=== PATIENT | female | born 1955 | race Two or more races ===

== ENCOUNTER → 2016-09-15 | Outpatient (CLI) | payer MEDICAID ==
--- NOTE | 2016-09-15 11:22 | DX ---
Left Knee, Five Views HISTORY: Left knee pain and swelling. FINDINGS: There is joint narrowing and subarticular sclerosis and periarticular spurring in the media l and patellofemoral compartment. There appears to be subcortical cystic change in the trochlear groo ve. Slight suprapatellar joint effusion. No evidence for acute fracture or dislocation. IMPRESSION: Mild early degenerative change in the medial and patellofemoral compartment. Slight supra patellar joint effusion.
== END ==
LOC: CIMAGING 10:04
PROVIDERS: ATTEND Family Medicine
DX: M25.462 Effusion, left knee (principal)
CPT/HCPCS: 73564-PO

== ENCOUNTER 2016-10-30 18:50 | Emergency (ER) | payer MEDICAID ==
[2016-10-30 19:14] VITALS: BP 150/97; PULSE 83; RESP 16; TEMP 98.2; O2SAT 98
[2016-10-30] MEDS ORDERED: IBUPROFEN 200 MG TAB PO ONE (19:33)
--- NOTE | 2016-10-30 20:25 | UCPHY ---
H & P Patient Type: Established Chief Complaint Nursing Narrative: cold symptoms for a few days, cough, hard to catch breath today, had blood tinged mucous today Time Seen by Provider: 10/30/16 20:15 HPI/ROS: This patient presents with a chief complaint cough productive of blood-tinged sputum which has been present for 2 days. The patient has been ill for 4 days with an illness that began with sore throat and is associated with runny nose, headache, myalgias, intermittent shortness of breath and a subjective fever. She has diffuse anterior chest pain as well. REVIEW OF SYSTEMS: Constitutional: Subjective fever, malaise and fatigue Eyes: No complaints ENT: Sore throat, rhinitis, no ear pain Respiratory: Cough, intermittent shortness of breath, blood tinged sputum Cardiac: Chest pain Gastrointestinal: Denies nausea vomiting constipation or diarrhea Genitourinary: Not addressed Musculoskeletal: Myalgias Skin: No rash Neurological: Headache Source: Patient, RN notes reviewed Exam Limitations: No limitations - Medical/Surgical History Hx Asthma: Yes Hx Chronic Respiratory Disease: No Hx Diabetes: No Hx Cardiac Disease: No Hx Renal Disease: No Hx Cirrhosis: No Hx Alcoholism: No Hx HIV/AIDS: No Hx Splenectomy or Spleen Trauma: No Other PMH: GERD and pleurisy. TYPE 2 DIABETES. SEVERE VARICOSE VEINS. HYPERTENSION. HYPERlipidemia and fibromyalgia - Family History Significant Family History: No pertinent family hx - Social History Smoking Status: Light smoker - Physical Exam Exam: GENERAL: Well-appearing, well-nourished and in no acute distress. No respiratory distress or tachypnea HEAD: Atraumatic, normocephalic. EYES: sclera anicteric, conjunctiva are normal. ENT: TMs normal, nares patent, oropharynx clear without exudates. Moist mucous membranes. NECK: Normal range of motion, supple without lymphadenopathy or JVD. Nontender LUNGS: Breath sounds clear to auscultation bilaterally and equal. No wheezes rales or rhonchi. No chest wall tenderness HEART: Regular rate and rhythm without murmurs, rubs or gallops. Peripheral pulses are symmetric and the lower extremities ABDOMEN: Soft, nontender, No guarding, no rebound. No masses appreciated. EXTREMITIES: Normal range of motion, no pitting or edema. No clubbing or cyanosis. Mild bilateral calf tenderness NEUROLOGICAL: Cranial nerves II through XII grossly intact. Normal speech, normal gait. PSYCH: Normal mood, normal affect. SKIN: Warm, dry, normal turgor, no visible rashes or lesions. Constitutional: Initial Vital Signs Temperature (C) 36.8 C 10/30/16 19:12 Heart Rate 83 10/30/16 19:12 Respiratory Rate 16 10/30/16 19:12 Blood Pressure 150/97 H 10/30/16 19:12 O2 Sat (%) 98 10/30/16 19:12 O2 Delivery Mode Room Air Allergies/Adverse Reactions: sulfamethoxazole [From Bactrim] Allergy (Intermediate, Verified 10/30/16 19:10) Other-Enter Comments trimethoprim [From Bactrim] Allergy (Intermediate, Verified 10/30/16 19:10) Other-Enter Comments metal Allergy (Uncoded 10/30/16 19:11) Home Medications: Medication Instructions Recorded Lovastatin 10/30/13 Albuterol Hfa Anes Only 05/29/15 Amlodipine Besylate 05/29/15 Premarin 08/18/16 Medical Decision Making - Diagnostics Imaging: A chest x-ray is normal Differential Diagnosis: I believe that this patient has a viral illness and that antibiotics are not indicated. There is no evidence of pneumonia or any other serious pulmonary problem. - Data Points Medications Given: Discontinued Medications Ibuprofen (Motrin) 600 mg PO EDNOW ONE Stop: 10/30/16 19:34 Last Admin: 10/30/16 19:45 Dose: 600 mg Departure - Departure Disposition: Home, Routine, Self-Care Clinical Impression: Acute bronchitis Qualifiers: Bronchitis organism: unspecified organism Qualified Code(s): J20.9 - Acute bronchitis, unspecified Condition: Good Instructions: Acute Bronchitis (ED) Additional Instructions: If your symptoms have not improved in 7-10 days you should be re-evaluated. If you feel that your symptoms are worsening you should be seen sooner. Adult Pain & Fever Control: We recommend Acetaminophen (Tylenol) and Ibuprofen (Motrin, Advil) for pain and fever control. When fever is high or pain severe, both drugs can be used at the same time, but at different intervals. Please note the time differences. Your dose is: Acetaminophen [650]mg every 4 to 6 hours ibuprofen [600]mg every [6] hours with food OR naproxen Sodium (Aleve) [440]mg every 12 hours. Note: do not take Acetaminophen with Hydrocodone (Vicodin, Lortab) or Oxycodone (Percocet). These medications also contain Acetaminophen. No more than 3000 mg of Acetaminophen should be taken in 24 hours (for an adult) . The maximal dose of ibuprofen that it is safe in a 24-hour period is 2400 mg. You may take 400 mg every 4 hours, 600 mg every 6 hours or 800 mg every 8 hours safely. Referrals: LASHAY YOUNG,. [Primary Care Provider] - As per Instructions - PQRS PQRS Measurement: Not applicable
== END 2016-10-30 21:00 | disposition home or self-care (01) ==
LOC: CED 18:50
DX: J02.9 Acute pharyngitis, unspecified (principal); K21.9 Gastro-esophageal reflux disease without esophagitis; I10 Essential (primary) hypertension; E11.9 Type 2 diabetes mellitus without complications; E78.5 Hyperlipidemia, unspecified; I83.90 Asymptomatic varicose veins of unspecified lower extremity; Z72.0 Tobacco use
CPT/HCPCS: 71020-PO; 99214-PO; G0463-PO

== ENCOUNTER 2016-12-02 22:28 | Emergency (ER) | payer MEDICAID ==
[2016-12-02 23:31] VITALS: BP 119/60; PULSE 66; RESP 16; TEMP 97.7; O2SAT 95
== END 2016-12-02 22:43 | disposition left against medical advice (07) ==
LOC: CED 22:28
DX: R10.9 Unspecified abdominal pain (principal); R50.9 Fever, unspecified; R03.0 Elevated blood-pressure reading, without diagnosis of hypertension; Z53.8 Procedure and treatment not carried out for other reasons

== ENCOUNTER 2016-12-03 16:00 | Emergency (ER) | payer MEDICAID ==
[2016-12-03 16:14] VITALS: BP 111/80; PULSE 81; RESP 18; TEMP 98.1; O2SAT 96
[2016-12-03 17:38] LABS: COLOR YELLOW; LEUKOCYTE ESTERASE,URINE NEGATIVE (NEGATIVE); NITRITE,URINE NEGATIVE (NEGATIVE)
[2016-12-03 18:27] LABS: % IMMATURE GRANULYOCYTES 0.1 % (0.0-1.1); ABSOLUTE IMMATURE GRANULOCYTES 0.01 10^3/uL (0.00-0.10); ADD DIFF? NO; ADD MORPH? NO; ADD SCAN? NO; ATYPICAL LYMPHOCYTE FLAG 0 (0-99); FRAGMENT RBC FLAG 0 (0-99); HEMATOCRIT 44.3 % (38.0-47.0); HEMOGLOBIN 14.2 g/dL (12.6-16.3); LEFT SHIFT FLG 0 (0-99); LIPEMIA HEMOLYSIS FLAG 80 (0-99); MEAN CELL HEMOGLOBIN 26.1 pg (27.9-34.1); MEAN CELL HEMOGLOBIN CONCENTR. 32.1 g/dL (32.4-36.7); MEAN CELL VOLUME 81.4 fL (81.5-99.8); MEAN PLATELET VOLUME 11.2 fL (8.7-11.7); PLATELET CLUMPS FLAG 0 (0-99); PLATELET COUNT 195 10^3/uL (150-400); RED BLOOD CELL COUNT 5.44 10^6/uL (4.18-5.33)
[2016-12-03 18:42] LABS: ALANINE AMINOTRANSFERASE 33 IU/L (9-52); ALKALINE PHOSPHATASE 83 IU/L (38-126); ANION GAP 15 mEq/L (8-16); ASPARTATE AMINOTRANSFERASE 24 IU/L (14-46); BILIRUBIN,TOTAL 0.4 mg/dL (0.1-1.4); CALCIUM 9.1 mg/dL (8.5-10.4); CARBON DIOXIDE 25 mEq/l (22-31); CHLORIDE 103 mEq/L (97-110); CREATININE 0.8 mg/dL (0.6-1.0); GLOMERULAR FILTRATION RATE > 60; GLUCOSE 92 mg/dL (70-100); POTASSIUM 4.1 mEq/L (3.5-5.2); SODIUM 143 mEq/L (134-144); TOTAL PROTEIN 7.2 g/dL (6.3-8.2)
--- NOTE | 2016-12-03 19:05 | UCPHY ---
H & P Patient Type: Established Chief Complaint Nursing Narrative: c/o bilateral upper abd and bilateral flank x 2 days. loose stools. no n/v Time Seen by Provider: 12/03/16 16:46 HPI/ROS: This patient reports generalized abdominal cramping slightly worse than left lower quadrant than elsewhere intermittently for the past 3 days. Peak intensity 5/10. At times she has no abdominal discomfort. She notes no clear exacerbating or alleviating factors. She thought she might have some constipation because of firm stool that she noted so she tried a stool softener with slightly looser stool for the past 24 hours but no change in the mild intermittent discomfort. She also describes cold symptoms consisting of coryza and a mild sore throat as well as mild frontal headache similar to previous headaches that resolved with [id number] antipyretics. ROS: No fevers or chills. No significant fatigue. No other constitutional symptoms. HEENT: No facial pain. She reports no ear pain. No visual changes. No photophobia. Pulmonary: Minimal cough that she attributes to postnasal drip. No pleuritic pain or shortness of breath. Cardiovascular: No lower extremity swelling or lightheadedness. No chest pain. GI: She still tolerating good p.o. intake. No nausea or vomiting. : No urinary symptoms. Neuro: No focal neuro complaints. 10 point ROS is otherwise negative. Source: Patient Exam Limitations: No limitations - Medical/Surgical History PMH: Hypercholesterolemia Hypertension Hx Asthma: Yes Hx Chronic Respiratory Disease: No Hx Diabetes: No Hx Cardiac Disease: No Hx Renal Disease: No Hx Cirrhosis: No Hx Alcoholism: No Hx HIV/AIDS: No Hx Splenectomy or Spleen Trauma: No Other PMH: htn, fibromyalgia. Past surgical history: Tubal ligation and hysterectomy - Family History Significant Family History: No pertinent family hx - Social History Smoking Status: Current some day smoker Alcohol Use: Occasionally Drug Use: None - Physical Exam Exam: Vital signs are normal General Appearance: Alert, no distress. Eyes: Pupils equal and round no pallor or injection. ENT, Mouth: Mucous membranes moist. No cranial tenderness or sinus tenderness to percussion. She has clear discharge from the nares bilaterally. Oropharynx is clear with no erythema or exudates. No dysphonia. Respiratory: There are no retractions, lungs are clear to auscultation. No rales, rhonchi or wheeze. Cardiovascular: Regular rate and rhythm. Gastrointestinal: Normoactive, soft, minimal left lower quadrant tenderness with no guarding or rebound. No distention. Back: No CVA tenderness Neurological: GCS 15 with no focal deficits appreciated. Skin: Warm and dry, no rashes. Musculoskeletal: Neck is supple nontender. Extremities are symmetrical, full range of motion. Psychiatric: Mood and affect are normal DIFFERENTIAL DIAGNOSIS: After history and physical exam differential diagnosis was considered for constipation with crampy pain, food intolerance, viral illness, URI, diverticulitis, UTI Constitutional: Initial Vital Signs Temperature (C) 36.7 C 12/03/16 16:11 Heart Rate 81 12/03/16 16:11 Respiratory Rate 18 12/03/16 16:11 Blood Pressure 111/80 12/03/16 16:11 O2 Sat (%) 96 12/03/16 16:11 O2 Delivery Mode Room Air Allergies/Adverse Reactions: sulfamethoxazole [From Bactrim] Allergy (Intermediate, Verified 10/30/16 19:10) Other-Enter Comments trimethoprim [From Bactrim] Allergy (Intermediate, Verified 10/30/16 19:10) Other-Enter Comments metal Allergy (Uncoded 10/30/16 19:11) Home Medications: Medication Instructions Recorded Lovastatin 10/30/13 Albuterol Hfa Anes Only 05/29/15 Amlodipine Besylate 05/29/15 Premarin 08/18/16 Docusate Sodium [Colace 100 MG (*)] 100 mg PO BID PRN #20 cap 12/03/16 Medical Decision Making ED Course/Re-evaluation: Studies: Normal, comp metabolic panel: Normal, urinalysis normal We counseled the patient regarding constipation. She has no concerning findings on workup. I do not think she has diverticulitis given minimal clinical findings and normal CBC. We ruled out UTI with normal urinalysis. - Data Points Laboratory Results: Laboratory Results 12/03/16 18:22 12/03/16 18:22 12/03/16 12/03/16 12/03/16 18:22 18:22 17:30 WBC 7.90 10^3/uL 10^3/uL (3.80-9.50) RBC 5.44 10^6/uL H 10^6/uL (4.18-5.33) Hgb 14.2 g/dL g/dL (12.6-16.3) Hct 44.3 % % (38.0-47.0) MCV 81.4 fL L fL (81.5-99.8) MCH 26.1 pg L pg (27.9-34.1) MCHC 32.1 g/dL L g/dL (32.4-36.7) RDW 15.0 % % (11.5-15.2) Plt Count 195 10^3/uL 10^3/uL (150-400) MPV 11.2 fL fL (8.7-11.7) Neut % (Auto) 51.6 % % (39.3-74.2) Lymph % (Auto) 36.8 % % (15.0-45.0) Nolan % (Auto) 9.0 % % (4.5-13.0) Eos % (Auto) 1.9 % % (0.6-7.6) Baso % (Auto) 0.6 % % (0.3-1.7) Nucleat RBC Rel Count 0.0 % % (0.0-0.2) Absolute Neuts (auto) 4.07 10^3/uL 10^3/uL (1.70-6.50) Absolute Lymphs (auto) 2.91 10^3/uL 10^3/uL (1.00-3.00) Absolute Monos (auto) 0.71 10^3/uL 10^3/uL (0.30-0.80) Absolute Eos (auto) 0.15 10^3/uL 10^3/uL (0.03-0.40) Absolute Basos (auto) 0.05 10^3/uL 10^3/uL (0.02-0.10) Absolute Nucleated RBC 0.00 10^3/uL 10^3/uL (0-0.01) Immature Gran % 0.1 % % (0.0-1.1) Immature Gran # 0.01 10^3/uL 10^3/uL (0.00-0.10) Sodium 143 mEq/L mEq/L (134-144) Potassium 4.1 mEq/L mEq/L (3.5-5.2) Chloride 103 mEq/L mEq/L (97-110) Carbon Dioxide 25 mEq/l mEq/l (22-31) Anion Gap 15 mEq/L mEq/L (8-16) BUN 15 mg/dL mg/dL (7-23) Creatinine 0.8 mg/dL mg/dL (0.6-1.0) Estimated GFR > 60 Glucose 92 mg/dL mg/dL (70-100) Calcium 9.1 mg/dL mg/dL (8.5-10.4) Total Bilirubin 0.4 mg/dL mg/dL (0.1-1.4) AST 24 IU/L IU/L (14-46) ALT 33 IU/L IU/L (9-52) Alkaline Phosphatase 83 IU/L IU/L (38-126) Total Protein 7.2 g/dL g/dL (6.3-8.2) Albumin 4.0 g/dL g/dL (3.5-5.0) Urine Color YELLOW Urine Appearance CLEAR Urine pH 6.0 (5.0-7.5) Ur Specific Wagoner 1.020 (1.002-1.030) Urine Protein NEGATIVE (NEGATIVE) Urine Ketones NEGATIVE (NEGATIVE) Urine Blood NEGATIVE (NEGATIVE) Urine Nitrate NEGATIVE (NEGATIVE) Urine Bilirubin NEGATIVE (NEGATIVE) Urine Urobilinogen 0.2 EU EU (0.2-1.0) Ur Leukocyte Esterase NEGATIVE (NEGATIVE) Ur Culture Indicated? NOT INDICATED (NI) Urine Glucose NEGATIVE (NEGATIVE) Departure - Departure Disposition: Home, Routine, Self-Care Clinical Impression: Generalized abdominal pain Constipation Qualifiers: Constipation type: unspecified constipation type Qualified Code(s): K59.00 - Constipation, unspecified Condition: Good Instructions: Constipation (ED) Additional Instructions: Diagnosis: 1. Constipation 2. Generalized crampy abdominal pain You do not have an elevated white blood cell count or other significant lab abnormalities today. Plan: Colace stool softener Drink plenty fluids Considered tbsp of all of oil a day in addition to the Colace stool softener. Tylenol or ibuprofen if needed for discomfort in her belly Follow up with primary care physician for any ongoing symptoms. Referrals: NONE *PRIMARY CARE P,. [Primary Care Provider] - As per Instructions Prescriptions: Docusate Sodium [Colace 100 MG (*)] 100 mg PO BID PRN #20 cap PRN Reason: Constipation - PQRS PQRS Measurement: NA
== END 2016-12-03 19:15 | disposition home or self-care (01) ==
LOC: CED 16:00
DX: R10.84 Generalized abdominal pain (principal); K59.00 Constipation, unspecified; E78.00 Pure hypercholesterolemia, unspecified; J45.909 Unspecified asthma, uncomplicated; I10 Essential (primary) hypertension; F17.200 Nicotine dependence, unspecified, uncomplicated; Z90.710 Acquired absence of both cervix and uterus; Z88.2 Allergy status to sulfonamides
CPT/HCPCS: 80053-PO; 81003-PO; 85025-PO; 99214-PO; G0463-PO

== ENCOUNTER 2016-12-29 21:06 | Emergency (ER) | payer MEDICAID ==
[2016-12-29 21:20] VITALS: BP 140/87; PULSE 86; RESP 16; TEMP 97.9; O2SAT 96
--- NOTE | 2016-12-29 22:41 | EDPHY ---
H & P Time Seen by Provider: 12/29/16 22:30 HPI/ROS: This patient reports spontaneous onset of a red eye-left side this afternoon. She had been outside and felt the wound blow an her face and was not sure if the episode is related to that at all. She did have any other associated symptoms except mild irritation after she noticed the redness. She also feels she might have a subtle vision change on that side. She has never had this eye redness before ROS: Constitutional: No complaints HEENT: No headache No recent eye trauma. No right eye symptoms at all. No discharge from left eye. Neuro: No complaints 5 point ROS is otherwise negative Past Medical/Surgical History: Fibromyalgia Hypertension Otherwise healthy Smoking Status: Current some day smoker Physical Exam: Physical Exam Vital signs are normal. General: No acute distress HEENT: Atraumatic. Eyes: Pupils equal and react to light. Extraocular motions are intact. Patient has a subconjunctival hemorrhage to medial left eye. Optic fundi exam is limited due to patient's IV movement but I appreciate no obvious retinal hemorrhage or abnormalities. Visual acuity is 20/20 right eye, 22 any OS and 20 /20 both eyes with correction lids and lashes are normal. No hyphema. Lungs: No respiratory distress. Cardiac: Brisk capillary refill is intact throughout. Skin: No rash or pallor. Neuro: GCS 15. No cranial nerve deficits are appreciated. Constitutional: Initial Vital Signs Temperature (C) 36.6 C 12/29/16 21:18 Heart Rate 86 12/29/16 21:18 Respiratory Rate 16 12/29/16 21:18 Blood Pressure 140/87 H 12/29/16 21:18 O2 Sat (%) 96 12/29/16 21:18 O2 Delivery Mode Room Air Allergies/Adverse Reactions: sulfamethoxazole [From Bactrim] Allergy (Intermediate, Verified 10/30/16 19:10) Other-Enter Comments trimethoprim [From Bactrim] Allergy (Intermediate, Verified 10/30/16 19:10) Other-Enter Comments metal Allergy (Uncoded 10/30/16 19:11) Home Medications: Medication Instructions Recorded Amlodipine Besylate 05/29/15 IBUPROFEN 12/29/16 MDM/Departure - MDM ED Course/Re-evaluation: Subconjunctival hemorrhage without any "red flag" findings. - Depart Disposition: Home, Routine, Self-Care Clinical Impression: Subconjunctival hemorrhage of left eye Condition: Good Instructions: Subconjunctival Hemorrhage (ED) Additional Instructions: Diagnosis: Subconjunctival hemorrhage Plan: Avoid aspirin The symptoms are gradually resolve typically over 10-14 days. Develops any new eye symptoms besides the current symptoms, follow up with the seeing eye dog teacher listed below Referrals: NONE *PRIMARY CARE P,. [Primary Care Provider] - As per Instructions Puja Cotto MD [Non Staff Provider (MD)] - As per Instructions
== END 2016-12-29 22:45 | disposition home or self-care (01) ==
LOC: CED 21:06
DX: H11.32 Conjunctival hemorrhage, left eye (principal); I10 Essential (primary) hypertension; F17.200 Nicotine dependence, unspecified, uncomplicated

== ENCOUNTER → 2018-07-02 | Outpatient (CLI) | payer MEDICAID | LOC: BRMIMAGING 12:54 | PROVIDERS: ATTEND Family Medicine | DX: Z12.31 Encounter for screening mammogram for malignant neoplasm of breast (principal) ==

== ENCOUNTER 2018-08-10 11:27 | Emergency (ER) | payer MEDICAID ==
[2018-08-10] MEDS ORDERED: ASPIRIN 81 MG CHEWABLE TAB PO ONE (11:56)
[2018-08-10] MEDS ORDERED: LORazepam 1 MG TAB PO ONE (11:56)
--- NOTE | 2018-08-10 12:02 | EDPHY ---
H & P Stated Complaint: TORRES started this past week,CP left ant then rt CP this am 1000, sob Time Seen by Provider: 08/10/18 11:37 HPI/ROS: CHIEF COMPLAINT: Headache, chest pain, anxiety HISTORY OF PRESENT ILLNESS: This is a 63-year-old female with a history of fibromyalgia as well as hypertension, questionable diabetes, and asthma who presents reporting that for the last week she has had intermittent episodes lasting about an hour of a sharp, shooting headache pain that extends from both temples across her cranium. Not associated with visual changes, nausea, vomiting, confusion, or neck pain. Not associated with fevers or chills. No history of exogenous estrogen use. No history of trauma. She has not had similar headaches in the past. She denies upper respiratory infection symptoms. Headaches have improved with Tylenol or naproxen. Currently she does not have a headache. This morning, she developed left and right anterior chest discomfort. Patient reports it feels like a pressure. Hurts to breathe and makes her feel short of breath. She does have anxiety which often causes right-sided chest discomfort but she became worried when her chest discomfort was on the left side today. Associated with a sensation of dizziness and an irregular heartbeat. She has had no fainting. No nausea or vomiting. Slight pleuritic component. No cold or cough symptoms, no runny nose. Patient states that the chest pain made her nervous today which has exacerbated her discomfort. She denies any fevers recently, sputum production, vomiting or diarrhea, urinary complaints. She has not been on diabetic medications, denies cardiac history but states that she is supposed to take an aspirin a day which she has not taken for the last 2 months, history of hypertension, no prior history of coronary artery disease. No history of PE or DVTs. REVIEW OF SYSTEMS: A comprehensive 10 system review of systems was reviewed and is otherwise negative aside from elements mentioned in the history of present illness and medical decision making. PAST MEDICAL HISTORY: Fibromyalgia, COPD/asthma, hypertension. SOCIAL HISTORY: Reports she quit smoking 3 weeks ago. VITAL SIGNS Reviewed by me. GENERAL: Well-developed, well-nourished, seems anxious. No obvious respiratory distress, respiratory rate is 24 on the monitor. HEENT: Atraumatic. Eyes: No icterus, no injection. Mouth: moist mucous membranes. No erythema or lesions. Neck: supple with no adenopathy. LUNGS: Clear to auscultation bilaterally, no wheezes, rhonchi or rales. CARDIAC: Regular rate and rhythm, no rubs, murmurs or gallops. CHEST WALL: Tenderness along the costosternal border bilaterally. ABDOMEN: Soft, nontender, nondistended, bowel sounds normal. BACK: No CVA tenderness. EXTREMITIES: No trauma. No edema. Range of motion is normal throughout. NEURO: Alert and oriented, grossly nonfocal. SKIN: Warm and dry, no rash. PSYCHIATRIC: Normal mentation, no agitation. - Personal History Current Tetanus Diphtheria and Acellular Pertussis (TDAP): Yes Tetanus Vaccine Date: 05/2018 - Medical/Surgical History Hx Asthma: Yes Hx Chronic Respiratory Disease: No Hx Diabetes: No Hx Cardiac Disease: No Hx Renal Disease: No Hx Cirrhosis: No Hx Alcoholism: No Hx HIV/AIDS: No Hx Splenectomy or Spleen Trauma: No Other PMH: htn, fibromyalgia. Past surgical history: Tubal ligation and hysterectomy - Social History Smoking Status: Former smoker Constitutional: Initial Vital Signs Temperature (C) 37.0 C 08/10/18 11:36 Heart Rate 58 L 08/10/18 11:36 Respiratory Rate 18 08/10/18 11:36 Blood Pressure 149/88 H 08/10/18 11:36 O2 Sat (%) 99 08/10/18 11:36 O2 Delivery Mode Room Air Allergies/Adverse Reactions: sulfamethoxazole [From Bactrim] Allergy (Intermediate, Verified 08/10/18 11:34) Other-Enter Comments trimethoprim [From Bactrim] Allergy (Intermediate, Verified 08/10/18 11:34) Other-Enter Comments metal Allergy (Uncoded 08/10/18 11:34) Home Medications: Medication Instructions Recorded Cat's Claw BID 08/10/18 LORazepam [Ativan] 1 mg PO Q6 PRN #6 tablet 08/10/18 Naproxen 08/10/18 Medical Decision Making - Diagnostics EKG Interpretation: 12-LEAD EKG: Please see the full report in Trace Master. My interpretation: Sinus rhythm Imaging Results: Xray: Chest x-ray was obtained. I viewed the images myself on the PACS system. My interpretation of the images is: Negative. The radiology interpretation is: Agrees. I discussed the results with the patient. Imaging: I viewed and interpreted images myself ED Course/Re-evaluation: 63-year-old female with history of hypertension, questionable history of diabetes, smoker who presents with bilateral anterior chest pain. Pain is described as sharp and has been present since 6 or 7:00 a.m. this morning. Patient feels that this is her anxiety causing her chest discomfort, however, the past she has not had chest pain on the left. EKG is nonischemic. Chest x-ray: Negative Troponin: Negative D-dimer: Negative Initial potassium on an i-STAT was 2.9, this was checked on the zeinab instrument and was 3.4. Patient also had reported a headache for several days, the which is described as a sharp shooting discomfort in the bitemporal regions. She is not on any blood thinners, no trauma. Patient received aspirin 324 mg as well as Ativan 1 mg. On re-examination at 12:40 she reports feeling improved. I believe her chest discomfort is nonischemic and that she is safe to be discharged. She has been taking naproxen with some improvement in her pain. I do not believe the patient needs advanced imaging studies such as an MRI or CT scan for her headache. We will provide 1 L of normal saline for additional hydration. Differential Diagnosis: After history was obtained, and the physical exam performed, a differential for headache was considered including, but not limited to, subarachnoid hemorrhage, migraine headache, tension headache and infectious causes such as meningitis, sinusitis, encephalitis. After history and physical examination, the differential for chest pain was considered, including but not limited to, myocardial ischemia, acute coronary syndrome, pulmonary embolus, chest wall pain, pleural inflammation and pulmonary infectious causes. - Data Points Medications Given: Discontinued Medications Aspirin (Aspirin) 324 mg PO EDNOW ONE Stop: 08/10/18 11:57 Last Admin: 08/10/18 12:03 Dose: 324 mg Sodium Chloride (Ns) 1,000 mls @ 0 mls/hr IV ONCE ONE; Wide Open PRN Reason: Protocol Stop: 08/10/18 12:55 Last Admin: 08/10/18 13:38 Dose: Not Given Lorazepam (Ativan) 1 mg PO EDNOW ONE Stop: 08/10/18 11:57 Last Admin: 08/10/18 12:03 Dose: 1 mg Point of Care Test Results: CBC CBC Collection Date 08/10/18 CBC Collection Time 11:47 WBC 9.2 RBC 5.72 HGB 15.6 HCT 46.3 PLT 208 Neut # 4.1 Neut 43.7 LYMPH # 4.4 LYMPH 48.3 Other WBC # 0.7 Other WBC 8.0 MCV 80.9 Chemistry 08/10/18 08/10/18 08/10/18 12:43 11:59 11:53 POC Sodium 139 mEq/L mEq/L 143 mEq/L mEq/L (135-145) (135-145) POC Potassium 3.3 mEq/L mEq/L 2.9 mEq/L L mEq/L (3.3-5.0) (3.3-5.0) POC Chloride 106 mEq/L mEq/L 102.0 mEq/L mEq/L (97-110) (97-110) POC Total CO2 23 mEq/L mEq/L (22-31) POC BUN 17 mg/dL mg/dL 15 mg/dL mg/dL (7-23) (7-23) POC Creatinine 0.7 mg/dL mg/dL 1.0 mg/dL mg/dL (0.6-1.0) (0.6-1.0) POC Glucose 88 mg/dL mg/dL 91 mg/dL mg/dL (70-100) (70-100) POC Calcium 10.1 mg/dL mg/dL (8.5-10.4) POC Troponin I 0.00 ng/mL ng/mL (0.00-0.08) ISTAT H&H 08/10/18 12:43 POC Hgb 14.6 gm/dL gm/dL (12.6-16.3) POC Hct 43 % % (38-47) D-Dimer D-Dimer Collection Date 08/10/18 D-Dimer Collection Time 11:47 D-Dimer (ng/ml) 181 Departure - Departure Disposition: Home, Routine, Self-Care Clinical Impression: Chest pain Qualifiers: Chest pain type: unspecified Qualified Code(s): R07.9 - Chest pain, unspecified Headache Qualifiers: Headache type: unspecified Headache chronicity pattern: acute headache Intractability: not intractable Qualified Code(s): R51 - Headache Condition: Good Instructions: Chest Pain (ED), Costochondritis (ED), Acute Headache (ED), Thoracic Pain (ED) Additional Instructions: I do not see any evidence that your chest pain is related to your heart. However, you do have risk factors for coronary artery disease and I would suggest that you follow up with your primary care physician. Please return to the emergency department if the chest pain worsens, is associated with nausea and vomiting, gets worse with exertion, if you have fainting related to the chest pain or if you break out in a sweat with the chest pain. You been given a short prescription of Ativan to use as needed for anxiety. Please take 1/2 to 1 tablet 1 to 2 times a day if needed. I also recommend regular doses of naproxen or ibuprofen to help with your chest discomfort. I recommend Ibuprofen (Motrin, Advil) or Naproxen Sodium (Aleve) for pain and anti-inflammatory effects. You may take either one, but do not take both. Your dose is: Ibuprofen 600 mg every 6-8 hours with food. OR Naproxen Sodium (Aleve) 220 mg every 12 hours. Drink plenty of fluids and get plenty of rest to help treat her headache discomfort. Please return to the emergency department or seek care urgently if your headache is worsening despite the above treatments. You may also take Tylenol, 650 mg to 1000 mg 3-4 times a day for additional headache relief. Referrals: Suzan Osman DO [Primary Care Provider] - As per Instructions Prescriptions: LORazepam [Ativan] 1 mg PO Q6 PRN #6 tablet PRN Reason: Anxiety
[2018-08-10] MEDS ORDERED: NS 1,000 ML IV ONE (12:54)
[2018-08-10 14:04] VITALS: BP 127/80
--- NOTE | 2018-08-11 23:39 | CPEKG ---
Test Reason : OPEN Blood Pressure : / mmHG Vent. Rate : 060 BPM Atrial Rate : 060 BPM P-R Int : 142 ms QRS Dur : 105 ms QT Int : 441 ms P-R-T Axes : 023 009 054 degrees QTc Int : 441 ms Sinus rhythm Confirmed by Ema Gilbert ([id number]) on 08/11/2018 11:39:17 PM Referred By: Confirmed By:Ema Gilbert
== END 2018-08-10 14:00 | disposition home or self-care (01) ==
LOC: CED 11:27
DX: R07.9 Chest pain, unspecified (principal); R51 Headache; I10 Essential (primary) hypertension; J44.9 Chronic obstructive pulmonary disease, unspecified
CPT/HCPCS: 71046-PO; 80048-PO; 82435-PO; 82565-PO; 82947-PO; 84132-PO; 84295-PO; 84484-PO; 84520-PO; 85014-PO

== ENCOUNTER 2018-08-14 14:47 | Emergency (ER) | payer MEDICAID ==
[2018-08-14] MEDS ORDERED: LIDOCAINE 2% VISCOUS 15 ML UDCUP PO ONE (15:04)
[2018-08-14] MEDS ORDERED: MAG HYDROX/AL HYDROX/SIMETH 30 ML UDCUP PO ONE (15:04)
[2018-08-14] MEDS ORDERED: HYOSCYAMINE SULFATE 0.125 MG TAB PO ONE (15:04)
[2018-08-14] MEDS ORDERED: NS 1,000 ML IV ONE (15:04)
--- NOTE | 2018-08-14 15:08 | EDPHY ---
H & P Stated Complaint: Abdominal pain Time Seen by Provider: 08/14/18 14:57 HPI/ROS: CHIEF COMPLAINT: Abdominal pain in the radiates to her back HISTORY OF PRESENT ILLNESS: Patient is a 63-year-old female with a history of fibromyalgia and hypertension who comes to the emergency department complaining of left upper quadrant pain that radiated to her left shoulder blade . She states that it began last night but that her granddaughter gave her massage in it seemed to resolve. This morning it returned and is been present for the last 8 hr. She is soon that it was her gastritis and took an Mary Carmen-Nubieber with moderate improvement. She denies shortness of breath but does have some pain with deep inspiration. She denies cardiac history and had a negative stress test 2 years ago. No fevers. No vomiting. No diarrhea or constipation. No blood in her stool. She states that she takes p.r.n. Tums and Mary Carmen-Nubieber for gastritis type symptoms. She was seen here 4 days ago for chest pain and headache. She had a negative cardiac workup in her headache is resolved. She has been taking Advil several times per day as was recommended. Severity: Moderate Modifying factors: None REVIEW OF SYSTEMS: Constitutional: denies: chills, fever, recent illness, recent injury EENTM: denies: blurred vision, double vision, nose congestion Respiratory: denies: cough, shortness of breath Cardiac: denies: chest pain, irregular heart rate, lightheadedness, palpitations Gastrointestinal/Abdominal: See HPI Genitourinary: denies: dysuria, frequency, hematuria, pain Musculoskeletal: denies: joint pain, muscle pain Skin: denies: lesions, rash, jaundice, bruising Neurological: denies: headache, numbness, paresthesia, tingling, dizziness, weakness Hematologic/Lymphatic: denies: blood clots, easy bleeding, easy bruising Immunologic/allergic: denies: HIV/AIDS, transplant 10 systems reviewed and negative except as noted EXAM: GENERAL: Well-appearing, well-nourished and in no acute distress. HEAD: Atraumatic, normocephalic. EYES: Pupils equal round and reactive to light, extraocular movements intact, sclera anicteric, conjunctiva are normal. ENT: TMs normal, nares patent, oropharynx clear without exudates. Moist mucous membranes. NECK: Normal range of motion, supple without lymphadenopathy or JVD. LUNGS: Breath sounds clear to auscultation bilaterally and equal. No wheezes rales or rhonchi. HEART: Regular rate and rhythm without murmurs, rubs or gallops. ABDOMEN: Soft, nontender, normoactive bowel sounds. No guarding, no rebound. No masses appreciated. Negative Bolivar's BACK: No CVA tenderness, no spinal tenderness, step-offs or deformities EXTREMITIES: Normal range of motion, no pitting or edema. No clubbing or cyanosis. NEUROLOGICAL: Cranial nerves II through XII grossly intact. Normal speech, normal gait. 5/5 strength, normal movement in all extremities, normal sensation , normal reflexes PSYCH: Normal mood, normal affect. SKIN: Warm, dry, normal turgor, no visible rashes or lesions. Source: Patient Exam Limitations: No limitations - Personal History Current Tetanus Diphtheria and Acellular Pertussis (TDAP): Yes Tetanus Vaccine Date: 05/2018 - Medical/Surgical History Hx Asthma: Yes Hx Chronic Respiratory Disease: No Hx Diabetes: No Hx Cardiac Disease: No Hx Renal Disease: No Hx Cirrhosis: No Hx Alcoholism: No Hx HIV/AIDS: No Hx Splenectomy or Spleen Trauma: No Other PMH: htn, fibromyalgia. Past surgical history: Tubal ligation and hysterectomy - Family History Significant Family History: No pertinent family hx - Social History Smoking Status: Former smoker Alcohol Use: Sober Drug Use: None Constitutional: Initial Vital Signs Temperature (C) 36.9 C 08/14/18 14:54 Heart Rate 85 08/14/18 14:54 Respiratory Rate 20 08/14/18 14:54 Blood Pressure 186/115 H 08/14/18 14:54 O2 Sat (%) 95 08/14/18 14:54 O2 Delivery Mode Room Air Allergies/Adverse Reactions: sulfamethoxazole [From Bactrim] Allergy (Intermediate, Verified 08/14/18 15:00) Other-Enter Comments trimethoprim [From Bactrim] Allergy (Intermediate, Verified 08/14/18 15:00) Other-Enter Comments metal Allergy (Uncoded 08/14/18 15:00) Home Medications: Medication Instructions Recorded Cat's Claw BID 08/10/18 LORazepam [Ativan] 1 mg PO Q6 PRN #6 tablet 08/10/18 Naproxen 08/10/18 Famotidine [Pepcid] 40 mg PO HS #30 tablet 08/14/18 Zolpidem Tartrate [Ambien 5MG (*)] 5 mg PO HS #10 tab 08/14/18 Medical Decision Making - Diagnostics EKG Interpretation: An EKG obtained and was read and documented in trace view. Please see trace view for full reading and report. Sinus rhythm, no acute ischemic changes, unchanged from previous A repeat EKG obtained and was read and documented in trace view. Please see trace view for full reading and report. Sinus rhythm, no acute ischemic changes Imaging Results: Imaging Impressions Chest X-Ray 08/14/18 15:04 Impression: Stable and negative. Recommendation: Consider CT of the abdomen, as clinically directed. Imaging: Discussed imaging studies w/ machine scallop cutter Radiologist ED Course/Re-evaluation: Patient has a history of gastritis and has been taking Advil for the last 4 days since her previous visit. I suspect that this is the most likely cause of her left upper quadrant pain. No blood in her stool or vomit. No peritoneal signs. Will repeat cardiac and pulmonary testing. Will treat with GI cocktail. 4:10 p.m. repeat EKG is unremarkable. The patient states that she is having is anxiety. I will treat with Ativan. I will also treat with Pepcid. She states that the GI cocktail did help with her symptoms. We discussed rectal exam to assess for occult blood but she declines. 5:10 p.m. the patient feels much better. She is eager to go home. We discussed antacids. She is also requesting a sleep aid. We discussed indications for returning such as vomiting blood or blood in her stool or worsening chest pain or shortness of breath etc. Differential Diagnosis: Partial list of the Differential diagnosis considered include but were not limited to; gastritis, peptic ulcer disease, anxiety, pleurisy, costochondritis and although unlikely based on the history and physical exam, I also considered acute coronary disease, PE, dissection, pneumonia. I discussed these differential diagnoses and the plan with the patient as well as the usual and expected course. The patient understands that the diagnosis is provisional and that in medicine we are not always correct and that further workup is often warranted. Usual and customary warnings were given. All of the patient's questions were answered. The patient was instructed to return to the emergency department should the symptoms at all worsen or return, otherwise to followup with the physician as we discussed. - Data Points Laboratory Results: 08/14/18 08/14/18 15:30 15:26 POC Sodium 142 mEq/L mEq/L (135-145) POC Potassium 3.3 mEq/L mEq/L (3.3-5.0) POC Chloride 99.0 mEq/L mEq/L (97-110) POC Total CO2 23 mEq/L mEq/L (22-31) POC BUN 9 mg/dL mg/dL (7-23) POC Creatinine 0.7 mg/dL mg/dL (0.6-1.0) POC Glucose 106 mg/dL H mg/dL (70-100) POC Calcium 10.0 mg/dL mg/dL (8.5-10.4) POC Total Bilirubin 0.6 mg/dL mg/dL (0.1-1.4) POC AST 30 IU/L IU/L (14-46) POC ALT 26 IU/L IU/L (9-52) POC Alk Phosphatase 84 IU/L IU/L (38-126) POC Troponin I 0.00 ng/mL ng/mL (0.00-0.08) POC Total Protein 7.1 g/dL g/dL (6.3-8.2) POC Albumin 3.8 g/dL g/dL (3.5-5.0) Medications Given: Discontinued Medications Al Hydroxide/Mg Hydroxide (Maalox Susp) 30 ml PO ONCE ONE Stop: 08/14/18 15:05 Last Admin: 08/14/18 15:14 Dose: 30 ml Famotidine (Pepcid) 40 mg PO EDNOW ONE Stop: 08/14/18 16:10 Last Admin: 08/14/18 16:23 Dose: 40 mg Hyoscyamine Sulfate (Levsin, Hyomax-Sl) 0.25 mg PO ONCE ONE Stop: 08/14/18 15:05 Last Admin: 08/14/18 15:14 Dose: 0.25 mg Sodium Chloride (Ns) 1,000 mls @ 0 mls/hr IV EDNOW ONE; Wide Open PRN Reason: Protocol Stop: 08/14/18 15:05 Last Admin: 08/14/18 15:35 Dose: 1,000 mls Lidocaine (Lidocaine 2% Viscous) 15 ml PO ONCE ONE Stop: 08/14/18 15:05 Last Admin: 08/14/18 15:14 Dose: 15 ml Lorazepam (Ativan Injection) 1 mg IVP EDNOW ONE Stop: 08/14/18 16:10 Last Admin: 08/14/18 16:16 Dose: 1 mg Point of Care Test Results: CBC CBC Collection Date 08/14/18 CBC Collection Time 15:23 WBC 7.4 RBC 5.57 HGB 15.2 HCT 44.8 PLT 194 Neut # 3.7 Neut 49.9 LYMPH # 3.0 LYMPH 41.0 Other WBC # 0.7 Other WBC 9.1 MCV 80.4 Chemistry 08/14/18 08/14/18 15:30 15:26 POC Sodium 142 mEq/L mEq/L (135-145) POC Potassium 3.3 mEq/L mEq/L (3.3-5.0) POC Chloride 99.0 mEq/L mEq/L (97-110) POC Total CO2 23 mEq/L mEq/L (22-31) POC BUN 9 mg/dL mg/dL (7-23) POC Creatinine 0.7 mg/dL mg/dL (0.6-1.0) POC Glucose 106 mg/dL H mg/dL (70-100) POC Calcium 10.0 mg/dL mg/dL (8.5-10.4) POC Total Bilirubin 0.6 mg/dL mg/dL (0.1-1.4) POC AST 30 IU/L IU/L (14-46) POC ALT 26 IU/L IU/L (9-52) POC Alk Phosphatase 84 IU/L IU/L (38-126) POC Troponin I 0.00 ng/mL ng/mL (0.00-0.08) POC Total Protein 7.1 g/dL g/dL (6.3-8.2) POC Albumin 3.8 g/dL g/dL (3.5-5.0) D-Dimer D-Dimer Collection Date 08/14/18 D-Dimer Collection Time 15:23 D-Dimer (ng/ml) 131 Departure - Departure Disposition: Home, Routine, Self-Care Clinical Impression: Epigastric abdominal pain, Peptic ulcer disease Condition: Fair Instructions: Gastritis (ED), Epigastric Pain (ED) Referrals: Suzan Osman, [Primary Care Provider] - 2-3 days, if not improved Prescriptions: Famotidine [Pepcid] 40 mg PO HS #30 tablet Zolpidem Tartrate [Ambien 5MG (*)] 5 mg PO HS #10 tab
--- NOTE | 2018-08-14 15:25 | CPEKG ---
Test Reason : OPEN Blood Pressure : / mmHG Vent. Rate : 063 BPM Atrial Rate : 063 BPM P-R Int : 144 ms QRS Dur : 095 ms QT Int : 427 ms P-R-T Axes : 050 -16 052 degrees QTc Int : 438 ms Sinus rhythm Borderline left axis deviation Confirmed by Chivo Plaza ([id number]) on 08/14/2018 3:25:17 PM Referred By: Confirmed By:Chivo Plaza
[2018-08-14] MEDS ORDERED: FAMOTIDINE 20 MG TAB PO ONE (16:09)
[2018-08-14] MEDS ORDERED: LORazepam 2 MG/ML INJ IVP ONE (16:09)
--- NOTE | 2018-08-14 16:14 | CPEKG ---
Test Reason : OPEN Blood Pressure : / mmHG Vent. Rate : 057 BPM Atrial Rate : 057 BPM P-R Int : 153 ms QRS Dur : 114 ms QT Int : 461 ms P-R-T Axes : 042 -08 063 degrees QTc Int : 449 ms Sinus rhythm Low voltage, extremity leads Confirmed by Chivo Plaza ([id number]) on 08/14/2018 4:14:28 PM Referred By: Confirmed By:Chivo Plaza
[2018-08-14 17:25] VITALS: BP 133/83
== END 2018-08-14 17:24 | disposition home or self-care (01) ==
LOC: CED 14:47
DX: R10.13 Epigastric pain (principal); K27.9 Peptic ulcer, site unspecified, unspecified as acute or chronic, without hemorrhage or perforation; E86.9 Volume depletion, unspecified; M79.7 Fibromyalgia; Z87.891 Personal history of nicotine dependence; Z88.2 Allergy status to sulfonamides
CPT/HCPCS: 71046-PO; 80053-PO; 84484-ER; 96374; J2060

== ENCOUNTER 2018-08-25 14:05 | Emergency (ER) | payer MEDICAID ==
[2018-08-25] MEDS ORDERED: MAG HYDROX/AL HYDROX/SIMETH 30 ML UDCUP PO ONE (15:32)
[2018-08-25] MEDS ORDERED: HYOSCYAMINE SULFATE 0.125 MG TAB PO ONE (15:32)
[2018-08-25] MEDS ORDERED: LIDOCAINE 2% VISCOUS 15 ML UDCUP PO ONE (15:32)
--- NOTE | 2018-08-25 15:37 | EDPHY ---
H & P Stated Complaint: L SIDED FLANK PAIN SINCE LAST NIGHT FOLLOWING EATING Time Seen by Provider: 08/25/18 15:12 HPI/ROS: CHIEF COMPLAINT: Left upper abdominal pain HISTORY OF PRESENT ILLNESS: This is a 63-year-old female requesting a refill on her Pepcid. She was seen here on August 10 and August 14 and diagnosed with GERD. On the she was started on Pepcid 40 mg HS. She felt that this medication was helping her but she left her prescription Pepcid in [place] and found that the [id number] Pepcid did not seem to be as effective. She has not taken any Pepcid for the last few days. After her visit on the she was also seen at [facility] where she was diagnosed with shingles--the rashes on the left side just below her breast on both thorax and her back. She has been taking Tylenol for discomfort related to the rash. In addition to being seen at [facility] she was also seen by her primary care physician last week. There has been no significant change in her condition today; except that she inadvertently ate some spicy food last night and today has had sharp midepigastric discomfort which she feels is related to GERD. She requests prescription Pepcid. She denies any fever, nausea or vomiting, diarrhea, blood in her stool, or change in the quality of pain that she has been experiencing. REVIEW OF SYSTEMS: A ten system review of systems was performed and is negative with the exception of the items mentioned in the HPI. Recently found to have a mass in her neck. Ultrasound performed last week and she will see her doctor this week to hear the results. No difficulty swallowing. Past medical history: 1. Hypertension 2. Fibromyalgia Social history: She is here with her daughter but lives in [place]. She is disabled. She does not use tobacco products. She rarely drinks alcohol. General Appearance: Alert. Vital signs reviewed. Blood pressure 144/89. Eyes: Pupils equal and round, no conjunctival injection, no discharge. Anicteric. ENT, Mouth: Mucous membranes are moist, no oropharyngeal erythema or edema. Neck: No lymphadenopathy, supple. Respiratory: Lungs are clear to auscultation; no wheezes, rales, or rhonchi. Thorax: Scabbed rash left back and thorax under her breast in a dermatomal distribution. Cardiovascular: Regular rate and rhythm; no murmur, rub, or gallop. Gastrointestinal: Abdomen is soft and nontender, no masses or organomegaly, bowel sounds normal. Skin: Warm and dry, rash as above, normal color. Back: Nontender to palpation over the thoracolumbar spine. No CVAT. Neurological: Alert and oriented. Moving all four extremities easily and equally. Psychiatric: Normal affect. - Personal History Current Tetanus Diphtheria and Acellular Pertussis (TDAP): Yes Tetanus Vaccine Date: 05/2018 - Medical/Surgical History Hx Asthma: Yes Hx Chronic Respiratory Disease: No Hx Diabetes: No Hx Cardiac Disease: No Hx Renal Disease: No Hx Cirrhosis: No Hx Alcoholism: No Hx HIV/AIDS: No Hx Splenectomy or Spleen Trauma: No Other PMH: htn, fibromyalgia. Past surgical history: Tubal ligation and hysterectomy - Social History Smoking Status: Former smoker Constitutional: Initial Vital Signs Temperature (C) 36.5 C 08/25/18 14:09 Heart Rate 76 08/25/18 14:09 Respiratory Rate 16 08/25/18 14:09 Blood Pressure 144/89 H 08/25/18 14:09 O2 Sat (%) 94 08/25/18 14:09 O2 Delivery Mode Room Air Allergies/Adverse Reactions: sulfamethoxazole [From Bactrim] Allergy (Intermediate, Verified 08/25/18 14:18) Other-Enter Comments trimethoprim [From Bactrim] Allergy (Intermediate, Verified 08/25/18 14:18) Other-Enter Comments metal Allergy (Uncoded 08/25/18 14:18) Home Medications: Medication Instructions Recorded Cat's Claw BID 08/10/18 LORazepam [Ativan] 1 mg PO Q6 PRN #6 tablet 08/10/18 Naproxen 08/10/18 Famotidine [Pepcid] 40 mg PO HS #30 tablet 08/14/18 Zolpidem Tartrate [Ambien 5MG (*)] 5 mg PO HS #10 tab 08/14/18 Famotidine [Pepcid] 40 mg PO HS #20 tablet 08/25/18 Medical Decision Making - Diagnostics EKG Interpretation: 12 lead EKG is interpreted in [place] by emergency department physician. ED Course/Re-evaluation: She felt that her symptoms were helped by the Pepcid and I see no reason not to continue this medication at this time. However, I suspect that much of her discomfort is related to her shingles, which are left-sided. She has been seen four times by various medical providers in the last ten days and I do not think that she needs additional ED evaluation today. She has follow-up with her primary care physician in 3 days. I have written a prescription for Pepcid 40 mg at bedtime. She plans to watch her diet more carefully. She was given a GI cocktail here in the emergency department. She will continue with Tylenol for pain over shingles. Danger signs were reviewed with her. Differential Diagnosis: I considered a ddx that includes but is not limited to GERD, PUD, shingles, hiatal hernia, pain related to shingles, ACS. I do not suspect a cardiac etiology of her discomfort and she had a cardiac evaluation recently. Departure - Departure Disposition: Home, Routine, Self-Care Clinical Impression: GERD (gastroesophageal reflux disease) Qualifiers: Esophagitis presence: esophagitis presence not specified Qualified Code(s): K21.9 - Gastro-esophageal reflux disease without esophagitis Shingles Qualifiers: Herpes zoster complications: without complications Qualified Code(s): B02.9 - Zoster without complications Condition: Fair Instructions: Shingles (ED), Diet for Stomach Ulcers and Gastritis (ED), Gastroesophageal Reflux Disease (ED) Additional Instructions: Take Tylenol, 650 mg, every four hours for the pain of your shingles. Do not take more than 3000 mg of tylenol in a twenty four hour time period. Take the pepcid once daily. Buy some Maalox or Mylanta to use if you have heartburn. Follow up on Sunday with your doctor, as planned. Referrals: Suzan Osman DO [Primary Care Provider] - As per Instructions Prescriptions: Famotidine [Pepcid] 40 mg PO HS #20 tablet
[2018-08-25 15:51] VITALS: BP 135/80
--- NOTE | 2018-08-25 15:56 | CPEKG ---
Test Reason : OPEN Blood Pressure : / mmHG Vent. Rate : 066 BPM Atrial Rate : 067 BPM P-R Int : 135 ms QRS Dur : 094 ms QT Int : 410 ms P-R-T Axes : 055 -10 039 degrees QTc Int : 430 ms Sinus rhythm Confirmed by Willow Sandy ([id number]) on 08/25/2018 3:56:34 PM Referred By: Confirmed By:Willow Sandy
== END 2018-08-25 15:50 | disposition home or self-care (01) ==
LOC: CED 14:05
DX: K21.9 Gastro-esophageal reflux disease without esophagitis (principal); B02.9 Zoster without complications; I10 Essential (primary) hypertension

== ENCOUNTER → 2018-09-10 | Outpatient (CLI) | payer MEDICAID ==
[~2018-09-10] MED LIST: LIDOCAINE 1% 300 MG/30 ML SDV ONE
== END ==
LOC: FIMAGING 10:12
PROC: 0G9K3ZX Drainage of Thyroid Gland, Percutaneous Approach, Diagnostic (ICD-10-PCS; principal; 2018-09-10)
DX: E04.1 Nontoxic single thyroid nodule (principal)